=== PATIENT | female | born 1955 | race Caucasian/White ===

== ENCOUNTER 2023-12-30 20:48 | Emergency (ER) | payer OTHER, SELFPAY ==
[2023-12-30 20:56] VITALS: BP 132/76; PULSE 84; RESP 20; TEMP 36; O2SAT 98
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
[2023-12-30 23:25] LABS: Chloride* 109 mmol/L (96-114)
[2023-12-30 23:26] LABS: Potassium* 3.7 mmol/L (3.6-5.1); Sodium* 139 mmol/L (135-149)
[2023-12-30 23:28] LABS: Creatinine* 0.7 mg/dL (0.5-1.5); Estimated Glomerular Filt Rate 95 ml/min; Hemoglobin* 11.9 gm/dL (12.0-16.0)
[2023-12-30 23:29] LABS: Anion Gap 5 mEq/L (7-15); Blood Urea Nitrogen* 23 mg/dL (7-30); Calcium* 9.1 mg/dL (8.4-10.6); Carbon Dioxide* 25 mmol/L (20-32); Glucose* 95 mg/dL (60-115)
[2023-12-30 23:39] LABS: NT Pro B Type NatriureticPept* 142 pg/mL
== END 2023-12-31 01:10 | disposition home or self-care (01) ==
PROVIDERS: Emergency Provider Family Medicine
DX: G47.00 Insomnia, unspecified (principal); F43.10 Post-traumatic stress disorder, unspecified
CPT/HCPCS: 36415; 80048; 83880; 85018; 99284